=== PATIENT | female | born 1950 | race Caucasian/White ===

== ENCOUNTER 2021-04-12 18:59 | Emergency (ER) | payer OTHER ==
[~2021-04-12] VITALS: Ht 160 cm; Wt 89.8 kg
[~2021-04-12 18:59] MED LIST: ASPIRIN PO; CRESTOR PO; EZETIMIBE PO; LISINOPRIL PO; SYNTHROID
[2021-04-12] MEDS ORDERED: ASA81BEC PO (19:05)
[2021-04-12] MEDS ORDERED: AVALIDE 300-121 EACH PO (19:05)
[2021-04-12] MEDS ORDERED: FLONASE 0.05%50 MCG NARES (19:05)
[2021-04-12] MEDS ORDERED: SYNTHROID50 MCG PO (19:05)
[2021-04-12] MEDS ORDERED: BUTALB-APAP-CA1 EACH PO (19:06)
[2021-04-12] MEDS ORDERED: NEXIUM40 MG PO (19:06)
[2021-04-12] MEDS ORDERED: HYDROCODON-ACE1 EAC8 PO (21:17)
[2021-04-12 21:58] VITALS: BP 168/72
== END 2021-04-12 21:59 | disposition home or self-care (01) ==
LOC: M.ERS 18:59
DX: S93.402A Sprain of unspecified ligament of left ankle, initial encounter (principal); I10 Essential (primary) hypertension; K21.9 Gastro-esophageal reflux disease without esophagitis; E03.9 Hypothyroidism, unspecified; Z88.5 Allergy status to narcotic agent; Z79.899 Other long term (current) drug therapy; Z79.82 Long term (current) use of aspirin; Z90.710 Acquired absence of both cervix and uterus; Z98.890 Other specified postprocedural states; W01.0XXA Fall on same level from slipping, tripping and stumbling without subsequent striking against object, initial encounter; Y93.89 Activity, other specified; Y92.89 Other specified places as the place of occurrence of the external cause; Y99.8 Other external cause status